=== PATIENT | male | born 1950 | race Caucasian/White ===

== ENCOUNTER 2019-10-25 08:59 | Inpatient (IN) ==
--- NOTE | 2019-10-25 09:11 | PROVIDER DOCUMENTATION ---
HPI-General Adult - General Stated Complaint: weakness Time Seen by Provider: 10/25/19 09:10 Source: patient - History of Present Illness -Gen Adult Nature of Presenting Problems: Pt. is 69 yom that presents with c/o increased weakness. Pt. family is at bedside and they report the patients weakness has gotten worse. They report a previous CVA about 5 years ago. Daughter states the patient normally walks but is having trouble walking today. She also reports that his slurred speech is normal and usually gets better as the day goes on. Location of Pain/Injury: reports: none. denies: head, face, mouth, neck, chest, upper extremity, hand(s), abdomen, back, pelvis, genitalia, lower extremity, feet, upper body, lower body, generalized, other Pain Radiation: reports: no radiation. denies: arm(s), back, buttocks, chest, epigastric, feet, groin, jaw, flank (L), legs (lower), LLQ, LUQ, neck, periumbilical, flank (R), RLQ, RUQ, shoulder(s), scapula, scrotal, sternal notch , suprapubic, legs (upper), urethral, vaginal, other Quality of Pain: reports: none. denies: burning, sharp, tightness Severity: reports: mild. denies: moderate, severe Onset/Duration: reports: abrupt, this morning Timing: reports: still present. denies: improving, intermittent, getting worse Context/Activities at Onset: reports: none. denies: light activity, moderate activity, vigorous activity, recent emotional stress, recent physical stress, recent trauma history, possible bad food, cold exposure, eating, out of country travel, rest, sleep, sexual activity, other Modifying Factors: improves with: nothing Associated Symptoms: reports: weakness. denies: denies symptoms, anxiety, arm pain, back/neck pain, chest pain, constipation, cough, diaphoresis, diarrhea, dizziness, EENT symptoms, fatigue, fever/chills, genitourinary problems, h eadaches, heartburn, joint pain, loss of appetite, malaise, muscle aches, sinus congestion/drainage, nausea, rash, seizure, shortness of breath, sensory/motor loss, pain with inspiration, swelling/mass in abdomen, syncope, vomiting, trouble walking, other Similar Symptoms Previously?: No Recently seen or treated by another doctor?: No Review of Systems - Adult - REVIEW OF SYSTEMS - ADULT Constitutional: reports: no symptoms reported Eyes: reports: no symptoms reported Ears, Nose, Mouth & Throat: reports: no symptoms reported Cardiovascular: reports: no symptoms reported Respiratory: reports: no symptoms reported Gastrointestinal: reports: no symptoms reported Genitourinary: reports: no symptoms reported Musculoskeletal: reports: see HPI, muscle weakness. denies: back pain, joint pain, neck pain Integumentary: reports: no symptoms reported Neurological: reports: see HPI, slurred speech. denies: dizziness/vertigo, headache/migraines, tremors Psychiatric: reports: no symptoms reported Past History - Adult - PAST MEDICAL HISTORY-ADULT Review of Records: reports: Old Records Reviewed, Nursing Assessment Review, Medications Reviewed, Social history reviewed & non-contributory. - IMMUNIZATION STATUS Childhood Immunizations: See Nurse Assessment Flu Vaccine: See Nurse Assessment - FAMILY HISTORY Family History: CVA/TIA - SOCIAL HISTORY Smoking: denies Physical Exam-General - PHYSICAL EXAM-ADULT Initial Vital Signs Reviewed: Yes - CONSTITUTIONAL General Appearance: alert, moderate distress. negative: anxious, obtunded, combative - EYES Eyes: PERRL/EOMI, pink conjunctivae - HEAD, EARS, NOSE, MOUTH & THROAT HENMT: normocephalic/atraumatic, moist mucous membranes - NECK Neck: non-tender, full range of motion, supple, normal inspection - RESPIRATORY Respiratory: lungs clear, normal breath sounds - CARDIOVASCULAR Cardiovascular: normal peripheral pulses, regular rate, rhythm - GASTROINTESTINAL (ABDOMEN) Abdominal Exam: normal bowel sounds, non tender, soft - LYMPHATIC Lymphatic: no adenopathy - MUSCULOSKELETAL Back Exam: normal inspection, no CVA tenderness, no vertebral tenderness Extremity: negative: deformity, erythema, inflammation Peripheral Pulses: radial (R): 2+, radial (L): 2+ - SKIN Integumentary: normal color, normal turgor, warm/dry - NEUROLOGIC Neurologic: motor weakness, sensory deficit. negative: aphasia, facial droop, focal weakness - PSYCHIATRIC Psych/Mental Status: normal mood/affect, normal thought content, normal thought process, oriented x 3. negative: anxious, paranoid, tearful Progress - PLAN OF CARE/RESULTS Progress/Plan/Lab Results: Orders Category Date Time Status Saline Loc NOW Care 10/25/19 09:10 Ordered CHEST-PORTABLE [RAD] Stat Exams 10/25/19 09:11 Ordered CBC WITH ELECTRONIC DIFF [HEME] Stat Lab 10/25/19 09:10 Uncollected CK PROFILE [SP CHEM] Stat Lab 10/25/19 09:10 Uncollected COMPREHENSIVE METABOLIC PANEL [CHEM] Stat Lab 10/25/19 09:10 Uncollected PRO B-NATRIURETIC PEPTIDE Stat Lab 10/25/19 09:10 Ordered TROPONIN T Stat Lab 10/25/19 09:10 Uncollected URINALYSIS W/POSS RFLX CULT [URINALYSIS] Stat Lab 10/25/19 09:10 Uncollected EKG [EKG] Stat Ther 10/25/19 09:10 Ordered Laboratory Tests 10/25/19 10/25/19 10/25/19 09:21 09:21 09:21 WBC 17.15 H RBC 4.22 L Hgb 13.5 L Hct 39.5 L MCV 93.6 MCH 32.0 H MCHC 34.2 RDW Std Deviation 12.9 Plt Count 175 MPV 10.1 Immature Gran % (Auto) 0.3 Neut % (Auto) 68.7 Lymph % (Auto) 14.1 L [place] % (Auto) 16.2 H Eos % (Auto) 0.5 Baso % (Auto) 0.2 Immature Gran # (Auto) 0.05 H Neut # (Auto) 11.79 H Lymph # (Auto) 2.42 [place] # (Auto) 2.78 H Eos # (Auto) 0.08 Baso # (Auto) 0.03 PT INR PTT (Actin FS) Sodium 138 Potassium 3.9 Chloride 101 Carbon Dioxide 23 L Anion Gap 14 BUN 13 Creatinine 1.2 Estimated GFR/1.73 m2 60 BUN/Creatinine Ratio 11 Glucose 95 POC Glucose Calculated Osmolality 276 Calcium 9.0 Magnesium Total Bilirubin 0.41 AST 17 ALT 10 Alkaline Phosphatase 39 Creatine Kinase 142 Troponin T Cjy-O-Wlewmimdcyw Pept 291 H Total Protein 7.0 Albumin 4.0 Globulin 3.0 Albumin/Globulin Ratio 1.3 Plasma Lactate Urine Source Urine Color Urine Turbidity Urine pH Ur Specific [place] Urine Protein Ur Glucose (Stick) Ur Ketones (Stick) Urine Blood Urine Nitrite Urine Bilirubin Urobilinogen Dipstick Urine Leukocytes Urine WBC (Auto) Urine RBC (Auto) U Epithel Cells (Auto) Urine Bacteria (Auto) 10/25/19 10/25/19 10/25/19 09:21 09:21 09:21 WBC RBC Hgb Hct MCV MCH MCHC RDW Std Deviation Plt Count MPV Immature Gran % (Auto) Neut % (Auto) Lymph % (Auto) [place] % (Auto) Eos % (Auto) Baso % (Auto) Immature Gran # (Auto) Neut # (Auto) Lymph # (Auto) [place] # (Auto) Eos # (Auto) Baso # (Auto) PT 14.1 INR 1.07 PTT (Actin FS) 29.3 Sodium Potassium Chloride Carbon Dioxide Anion Gap BUN Creatinine Estimated GFR/1.73 m2 BUN/Creatinine Ratio Glucose POC Glucose Calculated Osmolality Calcium Magnesium 1.8 Total Bilirubin AST ALT Alkaline Phosphatase Creatine Kinase Troponin T < 0.010 Xva-Q-Vtwqpfjvgur Pept Total Protein Albumin Globulin Albumin/Globulin Ratio Plasma Lactate Urine Source Urine Color Urine Turbidity Urine pH Ur Specific [place] Urine Protein Ur Glucose (Stick) Ur Ketones (Stick) Urine Blood Urine Nitrite Urine Bilirubin Urobilinogen Dipstick Urine Leukocytes Urine WBC (Auto) Urine RBC (Auto) U Epithel Cells (Auto) Urine Bacteria (Auto) 10/25/19 10/25/19 10/25/19 09:25 10:00 10:05 WBC RBC Hgb Hct MCV MCH MCHC RDW Std Deviation Plt Count MPV Immature Gran % (Auto) Neut % (Auto) Lymph % (Auto) [place] % (Auto) Eos % (Auto) Baso % (Auto) Immature Gran # (Auto) Neut # (Auto) Lymph # (Auto) [place] # (Auto) Eos # (Auto) Baso # (Auto) PT INR PTT (Actin FS) Sodium Potassium Chloride Carbon Dioxide Anion Gap BUN Creatinine Estimated GFR/1.73 m2 BUN/Creatinine Ratio Glucose POC Glucose 89 Calculated Osmolality Calcium Magnesium Total Bilirubin AST ALT Alkaline Phosphatase Creatine Kinase Troponin T Cyt-A-Cfwipdnfcvd Pept Total Protein Albumin Globulin Albumin/Globulin Ratio Plasma Lactate 1.4 Urine Source CLEAN CATCH Urine Color YELLOW Urine Turbidity CLEAR Urine pH 6.5 Ur Specific [place] 1.018 Urine Protein NEGATIVE Ur Glucose (Stick) NEGATIVE Ur Ketones (Stick) NEGATIVE Urine Blood NEGATIVE Urine Nitrite NEGATIVE Urine Bilirubin NEGATIVE Urobilinogen Dipstick 3 A Urine Leukocytes NEGATIVE Urine WBC (Auto) <10 Urine RBC (Auto) <10 U Epithel Cells (Auto) <10 Urine Bacteria (Auto) NEGATIVE Discussed results and plan of care with patient. Patient agrees with plan and verbalizes understanding. Result Diagrams: 10/25/19 09:21 10/25/19 09:21 - EKG 1 Time of EKG reading by physician:: 09:30 EKG Read and Signed by:: Aj Conner EKG Interpretation (*Must complete 3 of following elements*): Abnormal Rate: 77 Rhythm: NS [place]: normal QRS: RBB [place] Interval: normal ST Wave: normal - XRAY 1 XRAY Study: Chest ([facility] [address], [address], [place] [address] [facility] - [address] [place] [address] Department of Imaging Patient: ROMIE KING Date: 10/25/19MR#: [id number] : 1950DM Status: PRE ERAcct#: [id number] Age/Sex: 69/MRoom/Bed: Loc: ED Ordering Physician: Lyndsey Montano Family Physician: Gurpreet Turcios Reason for Procedure: weakness Signed EXAM: CHEST-PORTABLE 10/25/2019 HISTORY: weakness TECHNIQUE: AP portable at 0923 COMMENT: There is some questionable opacity in the left costophrenic angle region. There are no previous studies available for comparison. IMPRESSION: Questionable atelectasis in the left lower lobe. Electronically signed by Alex Mckeon 10/25/2019 9:33 AM 10/25/19932 Interpreting Physician: Alex Mckeon MD Dictated Date/Time: 10/25/19932 cc: Lyndsey Montano; Gurpreet Turcios) XRAY Interpretation: See note - CT/MRI 1 CT Study: Head ([facility] - [address], [address], [place] [address] [place] [address] Department of Imaging Patient: ROMIE KING Date: 10/25/19#: [id number] : 1950DM Status: PRE ERAcct#: [id number] Age/Sex: 69/MRoom/Bed: Loc: ED Ordering Physician: Lyndsey Montano Family Physician: Gurpreet Turcios Reason for Procedure: weakness with fall Signed CT HEAD W/O CONTRAST - 10/25/2019 INDICATION: weakness with fall COMPARISON: None FINDINGS: There is a large, old infarction at the right parietal lobe. This is in the posterior right middle cerebral artery territory. There is overall mild to moderate diffuse cerebral atrophy. There are probably tiny chronic bilateral subdural hemorrhages. There is severe cerebral white matter chronic microvascular ischemia. There are metallic densities in the left orbit and periorbital tissues. The left globe is scarred. No skull fracture. The sinuses, mastoids, and middle ears are clear. IMPRESSION: Chronic appearing changes. Possible tiny chronic subdural hemorrhages bilaterally. Consider further evaluation with a brain MRI. This report was discussed with David Montano on 10/25/2019 at 9:48 AM and was readback. This exam was performed using automated exposure control, adjustment of mA or kV according to patient size, and/or use of iterative rec onstruction technique Electronically signed by Constantino Echeverria 10/25/2019 9:49 AM 10/25/19 0949 Interpreting Physician: Constantino Echeverria MD Dictated Date/Time: 10/25/1994 cc: Lyndsey Montano; Gurpreet Turcios) CT Results: See note 2 MRI Study: Brain ([facility] - [address] , [address], [place] [address] [place] [address] Department of Imaging Patient: ROMIE KING Date: 10/25/19#: [id number] : 1950DM Status: REG ERAcct#: [id number] Age/Sex: 69/MRoom/Bed: Loc: ED Ordering Physician: Lyndsey Montano Family Physician: Gurpreet uTrcios Reason for Procedure: Increased weakness from normal Signed MRI BRAIN W/WO CONTRAST - 10/25/2019 INDICATION: Increased weakness from normal COMPARISON: Head CT from earlier today FINDINGS: There is moderate patient motion artifact. There is no area of restricted diffusion. There is an area of old encephalomalacia at the right parietal lobe. There is moderate diffuse atrophy. There is extensive periventricular white matter chronic microvascular ischemia. There are probably small subdural effusions bilaterally which are nonspecific. No evidence of intracranial hemorrhage. Midline structures including optic chiasm and pituitary are grossly normal. IMPRESSION: No evidence of intracranial hemorrhage. Advanced chronic changes. Probable small bilateral subdural effusions which appear benign. Electronically signed by Constantino Echeverria 10/25/2019 11:07 AM 10/25/19 1107 Interpreting Physician: Constantino Echeverria MD Dictated Date/Time: 10/25/19 1106 cc: Lyndsey Montano; Gurpreet Turcios) MRI Results: See note - CONSULTS/PCP/HOSPITALIST Notification #1 *Consult/PCP/Hospitalist*: Danni Jaeger Time Discussed: 11:15 Reason/Comments: Admission Consult Disposition: Will see in ED, Admit Departure - Departure Date of Disposition Decision: 10/25/19 Time of Disposition Decision: 11:15 DIAGNOSIS: Weakness Leukocytosis Qualifiers: Leukocytosis type: unspecified Qualified Code(s): D72.829 - Elevated white blood cell count, unspecified Disposition: ADMITTED INPATIENT 09 Certified Medical Emergency: Emergent Condition: Stable Referrals and Follow-Ups: Gurpreet Turcios [Primary Care Provider] - - Critical Care Note This patient required my direct & personal management of CC.: No Attestation - Physician/ JACK Attestation Patient care was provided by Advanced Practice Provider:: Yes Advanced Practice Provider:: Lyndsey Montano Advanced Practice Provider documentation review:: The Mid-level provider documentation, treatment plan and medical decision making was reviewed by the physician who agrees with all treatment and medical decision making by the MLP. The physician spent face to face time with patient:: No Advanced Practice Provider documentation review:: Supervising physician onsite and consulted in the evaluation and care of this patient. The physician did not have a face to face encounter with the patient.
--- NOTE | 2019-10-25 09:32 | EKG Report ---
Test Performed on : 10/25/2019 09:28:06 AM Test Reason : weakness Blood Pressure : / mmHG Vent. Rate : 077 BPM Atrial Rate : 077 BPM P-R Int : 148 ms QRS Dur : 142 ms QT Int : 414 ms P-R-T Axes : 042 -65 071 degrees QTc Int : 468 ms Normal sinus rhythm. Right bundle branch block Left anterior fascicular block Bifascicular block Septal infarct , age undetermined T wave abnormality, consider lateral ischemia Abnormal ECG No previous ECGs available Unconfirmed Result
[2019-10-25 09:34] LABS: BASO# 0.03 X1000 (0.0-0.2); BASO% 0.2 % (0.0-0.8); EOS# 0.08 X1000 (0.0-0.7); EOS% 0.5 % (0.0-10.0); HEMATOCRIT 39.5 % (42.0-52.0); HEMOGLOBIN 13.5 g/dL (14.0-18.0); IMM GRAN# 0.05 X1000 (0.0-0.04); IMM GRAN% 0.3 % (0.0-0.5); LYMPH# 2.42 X1000 (1.2-3.4); LYMPH% 14.1 % (20.5-51.1); MCHC 34.2 g/dL (33-37); MCV 93.6 FL (81-99); MONO# 2.78 X1000 (0.11-0.59); MONO% 16.2 % (1.7-9.3); MPV 10.1 FL (7.4-10.4); NEUT# 11.79 X1000 (1.4-6.5); NEUT% 68.7 % (42.2-75.2); PLT 175 X1000 (130-400); RBC 4.22 XMIL (4.7-6.1); RDW 12.9 % (11.5-14.5); WBC 17.15 X1000 (4.8-10.8)
--- NOTE | 2019-10-25 09:36 | Diag Imaging Result Doc PS360 ---
EXAM: CHEST-PORTABLE 10/25/2019 HISTORY: weakness TECHNIQUE: AP portable at 0923 COMMENT: There is some questionable opacity in the left costophrenic angle region. There are no previous studies available for comparison. IMPRESSION: Questionable atelectasis in the left lower lobe. Electronically signed by Alex Mckeon 10/25/2019 9:33 AM
--- NOTE | 2019-10-25 09:51 | Diag Imaging Result Doc PS360 ---
CT HEAD W/O CONTRAST - 10/25/2019 INDICATION: weakness with fall COMPARISON: None FINDINGS: There is a large, old infarction at the right parietal lobe. This is in the posterior right middle cerebral artery territory. There is overall mild to moderate diffuse cerebral atrophy. There are probably tiny chronic bilateral subdural hemorrhages. There is severe cerebral white matter chronic microvascular ischemia. There are metallic densities in the left orbit and periorbital tissues. The left globe is scarred. No skull fracture. The sinuses, mastoids, and middle ears are clear. IMPRESSION: Chronic appearing changes. Possible tiny chronic subdural hemorrhages bilaterally. Consider further evaluation with a brain MRI. This report was discussed with David Montano on 10/25/2019 at 9:48 AM and was readback. This exam was performed using automated exposure control, adjustment of mA or kV according to patient size, and/or use of iterative reconstruction technique Electronically signed by Constantino Echeverria 10/25/2019 9:49 AM
[2019-10-25 10:16] LABS: URINE SOURCE CLEAN CATCH
[2019-10-25 10:20] LABS: ALB/GLOB RATIO 1.3; CREATININE 1.2 mg/dL (0.7-1.2); POTASSIUM 3.9 mmol/L (3.5-5.1); TOTAL BILIRUBIN 0.41 mg/dL (0.20-1.00)
[2019-10-25 10:22] LABS: BILIRUBIN URINE NEGATIVE (NEGATIVE); BLOOD URINE NEGATIVE (NEGATIVE); COLOR YELLOW; GLUCOSE URINE NEGATIVE (NEGATIVE); KETONE URINE NEGATIVE (NEGATIVE); LEUKOCYTES URINE NEGATIVE (NEGATIVE); NITRITE URINE NEGATIVE (NEGATIVE); PH URINE 6.5; PROTEIN URINE NEGATIVE (NEGATIVE); SP GRAVITY URINE 1.018; TURBIDITY URINE CLEAR (CLEAR); UROBILINOGEN URINE 3 mg/dL (NORMAL)
[2019-10-25 10:23] LABS: INR 1.07; PROTIME 14.1 Seconds (11.0-16.0); PTT 29.3 Seconds (22.3-41.8)
[2019-10-25 10:23] LABS: UR EPITHELIAL CELLS <10 /HPF (<10); URINE BACTERIA NEGATIVE /HPF; URINE RBC <10 /HPF (<10); URINE WBC <10 /HPF (<10)
--- NOTE | 2019-10-25 11:10 | Diag Imaging Result Doc PS360 ---
MRI BRAIN W/WO CONTRAST - 10/25/2019 INDICATION: Increased weakness from normal COMPARISON: Head CT from earlier today FINDINGS: There is moderate patient motion artifact. There is no area of restricted diffusion. There is an area of old encephalomalacia at the right parietal lobe. There is moderate diffuse atrophy. There is extensive periventricular white matter chronic microvascular ischemia. There are probably small subdural effusions bilaterally which are nonspecific. No evidence of intracranial hemorrhage. Midline structures including optic chiasm and pituitary are grossly normal. IMPRESSION: No evidence of intracranial hemorrhage. Advanced chronic changes. Probable small bilateral subdural effusions which appear benign. Electronically signed by Constantino Echeverria 10/25/2019 11:07 AM
[2019-10-25] MEDS ORDERED: ZOFRAN IV PRN (12:44)
[2019-10-25 12:45] LABS: ALLEN TEST YES; BE 0.5 mmoll (-3.0-3.0); BLOOD TYPE ARTERIAL; HCO3-(ACT) 25.2 mmoll (20.0-26.0); METHB 1.1 % (0.0-1.5); O2(CT) 17.8 mL/dL (15.0-23.0); PCO2(98.6) 37 mmHg (35-45); PO2(98.6) 62 mmHg (60-100); SAMPLE BLOOD; SAO2 94.7 % (95.0-100.0); THB 13.8 g/dL (11.5-17.4); pH(98.6) 7.43 (7.35-7.45)
[2019-10-25 12:47] LABS: MODALITY ROOM AIR
--- NOTE | 2019-10-25 14:19 | HISTORY AND PHYSICAL ---
PRIMARY CARE PHYSICIAN: Dr. Turcios. CHIEF COMPLAINT: Fall, found on the floor this morning. He did hit his head on the night table beside his bed, and has a little small laceration to his left ear. No loss of consciousness. HISTORY OF PRESENTING ILLNESS: This is a 69-year-old male who presents to [facility] after he was found on the floor this morning by family. He had lost his balance he states, and hit his head on the bedside table with a small laceration noted to his left ear. He reports increased weakness. He had a stroke about 5 years ago, and has some slurred speech residual from that stroke. Workup showed a CT of the head with chronic appearing changes, possible tiny chronic subdural hemorrhages bilaterally, and recommended an MRI. We did the MRI of the brain, and it showed no evidence of intracranial hemorrhage, advanced chronic changes, and a probable small bilateral subdural effusions which appeared benign. His white blood cell count was elevated at 17.15. Laboratory Data otherwise was unremarkable, but he will be admitted for further evaluation and treatment. PAST MEDICAL HISTORY: CVA 5 years ago, hypertension, and a mild WA. PAST SURGICAL HISTORY: Left leg surgery in the 70s for unknown reason. FAMILY HISTORY: Reviewed and noncontributory. SOCIAL HISTORY: Currently lives with family. Smokes 1 to 2 packs of cigarettes a day, and has done so for 40+ years. Denies any alcohol or illicit drug use. ALLERGIES: No known allergies. HOME MEDICATIONS: We do not have a current list at this time, but we will have nursing to update and confirm home medications. LABORATORY DATA: White blood cell count of 17.15, hemoglobin 13.5, hematocrit 39.5, and platelets 175,000. PT and INR of 14.1 and 1.07. Sodium of 138, potassium 3.9, chloride 101, CO2 23, BUN of 13, creatinine 1.2, glucose 95, and magnesium 1.8. Cardiac enzyme was negative. Plasma lactate of 1.4. Urinalysis was negative. CT of the head showed chronic appearing changes, possible tiny chronic subdural hemorrhage bilaterally. Consider further evaluation with brain MRI. We obtained a brain MRI that showed no evidence of intracranial hemorrhage, advanced chronic changes, and a probable small bilateral subdural effusion which appeared benign. Chest x-ray showed a questionable atelectasis in the left lower lobe. EKG normal sinus rhythm at 77. REVIEW OF SYSTEMS: He denied any fever, chills, blurred vision, or dizziness. He has had increased weakness. Denied any chest pain, coughing, or shortness of breath. Denied any abdominal pain, constipation, diarrhea, burning or hurting with urination. PHYSICAL EXAMINATION: Pulse of 96, respirations 18, blood pressure 147/96, and saturating 100% on room air. GENERAL: This is a 69-year-old male who is lying in the bed. Answers questions appropriately. Difficult to understand at times from his residual slurred speech from a previous stroke. HEENT: The patient is noted to have a small laceration to his left ear from where he hit the bedside table by his bed. A Band-Aid in place. Normal nose and throat examination. Oropharynx and nares are clear. EYES: Pupils are equal, round, reactive to light and accommodation. Extraocular movements are intact. NECK: Normal inspection. Normal range of motion. LUNGS: Clear to auscultation bilaterally with equal lung expansion. Chest wall movement. HEART: Regular rate and rhythm. No murmurs, rubs, or gallops. ABDOMEN: Soft, nontender, nondistended. Bowel sounds are present x4 quadrants. MUSCULOSKELETAL: Normal inspection. Moves extremities well. NEUROLOGICAL: The cranial nerves 2-12 appear grossly intact. ASSESSMENT: 1. Status post fall. 2. Leukocytosis, no clear etiology of infection. 3. Hypertension. 4. Tobacco abuse. PLAN: He will be admitted to the medical unit, and placed on telemetry. Healthy heart diet. Give him a nicotine patch. We will have 21 mg transdermally daily. We will have physical therapy to evaluate and treat. We need to update and confirm home medications, and then we will restart those as appropriate. We will recheck a CBC BMP in the morning. Further orders after seen by attending. Dictated by NEGRO Avery for Guy Jaeger MD cc: NEGRO Avery MD Dr. Beach
[2019-10-25] MEDS: NICODERM PATCH TD SCH (15:01)
[2019-10-25] MEDS: TYLENOL PO PRN (15:10)
[2019-10-25] MEDS ORDERED: FLU VACCINE IM ONE (15:38)
[2019-10-25] MEDS: ROCEPHIN 1 GM in NS 50 ML IV SCH (16:38)
[2019-10-25] MEDS: ZITHROMAX 500 MG/NS 500 MG/250 ML IVPB IV SCH (17:21)
--- NOTE | 2019-10-25 20:01 | PROGRESS NOTE ---
DATE: 10/25/2019 SUBJECTIVE: This is a patient who was found on the floor. He has a significant history of CVA five years ago, with hemiparesis and slurred speech. He was found on the floor. Unclear if he passed out or fell. In any case, he was calling out though, so he was awake when this happened. He was placed in observation for treatment, rule out stroke. He did have a white count of 17,000, without a clear source. He does not really describe any cough. His urine was clear, but there was a questionable left basilar infiltrate, so he may have a little bit of pneumonia. OBJECTIVE: I really could not get very much out of him. I did not appreciate rales. ASSESSMENT/PLAN: In any case, we will treat empirically for pneumonia and see how he does. There is no evidence of acute stroke based on neuroimaging that has been accomplished, so we will continue to follow. I think he is at his baseline essentially. This is a [id number]-il-rcoe encounter note with Danni Valdivia. cc: Guy Jaeger MD
[2019-10-25] MEDS: RISPERDAL PO SCH (20:57)
[2019-10-25] MEDS: COGENTIN PO SCH (20:57)
[2019-10-25] MEDS: EXELON PO SCH (20:58)
[2019-10-25] MEDS: LOPRESSOR PO SCH (20:58)
[2019-10-25] MEDS: NORVASC PO SCH (20:58)
[2019-10-25] MEDS: DEPAKOTE PO SCH (20:58)
[2019-10-25] MEDS: DUONEB (A & A) INH SCH (21:26)
[2019-10-26] MEDS: LOVENOX SUBQ SCH (05:55)
[2019-10-26 07:45] LABS: BASO# 0.03 X1000 (0.0-0.2); BASO% 0.2 % (0.0-0.8); EOS% 0.7 % (0.0-10.0); HEMATOCRIT 39.5 % (42.0-52.0); HEMOGLOBIN 13.4 g/dL (14.0-18.0); IMM GRAN# 0.05 X1000 (0.0-0.04); IMM GRAN% 0.3 % (0.0-0.5); LYMPH% 23.4 % (20.5-51.1); MCH 31.9 PG (27-31); MCHC 33.9 g/dL (33-37); MONO# 1.96 X1000 (0.11-0.59); MONO% 13.5 % (1.7-9.3); MPV 10.6 FL (7.4-10.4); NEUT% 61.9 % (42.2-75.2); PLT 169 X1000 (130-400); WBC 14.54 X1000 (4.8-10.8)
[2019-10-26 07:50] LABS: AGAP 13; BUN 12 mg/dL (8-22); CALCIUM 8.7 mg/dL (8.8-10.2); CHLORIDE 102 mmol/L (98-107); COSMO 279; CREATININE 0.9 mg/dL (0.7-1.2); ESTIMATED GFR > 60; GLUCOSE 90 mg/dL (70-104); POTASSIUM 3.6 mmol/L (3.5-5.1); SODIUM 140 mmol/L (136-145); TCO2 25 mmol/L (25-35)
[2019-10-26] MEDS: ASPIRIN PO SCH (08:41)
[2019-10-26] MEDS: RISPERDAL PO SCH ×2 (08:42→22:48)
[2019-10-26] MEDS: LOPRESSOR PO SCH ×2 (08:42→22:48)
[2019-10-26] MEDS: EXELON PO SCH ×2 (08:42→22:48)
[2019-10-26] MEDS: NORVASC PO SCH ×2 (08:42→22:48)
[2019-10-26] MEDS: NICODERM PATCH TD SCH (08:43)
[2019-10-26] MEDS: DUONEB (A & A) INH SCH ×3 (09:30→21:44)
[2019-10-26] MEDS ORDERED: VANCOMYCIN IV PER PHARMACY MISC SCH (09:30)
[2019-10-26] MEDS ORDERED: VANCOMYCIN 2 GM in NS 500 ML IV SCH (11:00)
[2019-10-26] MEDS: COGENTIN PO SCH ×2 (12:40→22:48)
--- NOTE | 2019-10-26 14:06 | Diag Imaging Result Doc PS360 ---
EXAM: CHEST-2 VIEWS 10/26/2019 HISTORY: hypoxia TECHNIQUE: PA and lateral chest COMMENT: There is a calcified granuloma in the left lower lobe. Compared to 10/15/2019 there has been no appreciable change. IMPRESSION: Stable chest. Electronically signed by Alex Mckeon 10/26/2019 2:04 PM
[2019-10-26] MEDS: ZITHROMAX 500 MG/NS 500 MG/250 ML IVPB IV SCH (16:17)
[2019-10-26] MEDS: ROCEPHIN 1 GM in NS 50 ML IV SCH (16:46)
--- NOTE | 2019-10-26 19:49 | PROGRESS NOTE ---
DATE: 10/26/2019 SUBJECTIVE: No major complaints. I cannot see that we are really getting much cough or anything. OBJECTIVE: Vital signs: Blood pressure is pretty stable, 120/90, heart rate of 89, respiratory rate of 22, temperature 98.4 degrees. Cardiovascular: Regular rate and rhythm. Pulmonary: Bilateral breath sounds, clear to auscultation. GI: Soft, nontender, nondistended. Bowel sounds are positive. LABORATORY DATA: White count 14, hemoglobin and hematocrit 13 and 39, platelets 169,000. Basic was normal. Chest x-ray is stable. PROBLEM LIST: 1. Left lower lobe pneumonia. He is on empiric antibiotics. We will continue to follow. 2. History of cerebrovascular accident with hemiparesis, but he ambulates on his own without difficulty, so we will continue with physical therapy and strength training and see how he does. 3. Hypertension. Continue his regular medications. DISPOSITION: If stable, anticipate discharge hopefully tomorrow pending clinical status. cc: Guy Jaeger MD
[2019-10-26] MEDS: DEPAKOTE PO SCH (22:49)
[2019-10-27] MEDS: LOVENOX SUBQ SCH (06:44)
[2019-10-27 07:03] LABS: BASO# 0.04 X1000 (0.0-0.2); BASO% 0.4 % (0.0-0.8); EOS# 0.22 X1000 (0.0-0.7); EOS% 1.9 % (0.0-10.0); HEMATOCRIT 38.3 % (42.0-52.0); HEMOGLOBIN 13.3 g/dL (14.0-18.0); IMM GRAN# 0.05 X1000 (0.0-0.04); IMM GRAN% 0.4 % (0.0-0.5); LYMPH# 2.86 X1000 (1.2-3.4); LYMPH% 25.2 % (20.5-51.1); MCH 32.3 PG (27-31); MCHC 34.7 g/dL (33-37); MONO% 16.7 % (1.7-9.3); MPV 10.8 FL (7.4-10.4); NEUT# 6.29 X1000 (1.4-6.5); NEUT% 55.4 % (42.2-75.2); PLT 182 X1000 (130-400); RBC 4.12 XMIL (4.7-6.1); RDW 12.7 % (11.5-14.5); WBC 11.36 X1000 (4.8-10.8)
[2019-10-27 07:21] LABS: AGAP 13; BUN 14 mg/dL (8-22); CALCIUM 8.7 mg/dL (8.8-10.2); CHLORIDE 101 mmol/L (98-107); COSMO 278; CREATININE 0.9 mg/dL (0.7-1.2); ESTIMATED GFR > 60; GLUCOSE 102 mg/dL (70-104); POTASSIUM 3.9 mmol/L (3.5-5.1); SODIUM 139 mmol/L (136-145); TCO2 25 mmol/L (25-35)
[2019-10-27] MEDS: DUONEB (A & A) INH SCH ×4 (10:42→23:35)
[2019-10-27] MEDS: NICODERM PATCH TD SCH (11:04)
[2019-10-27] MEDS: RISPERDAL PO SCH ×2 (11:04→20:58)
[2019-10-27] MEDS: EXELON PO SCH ×2 (11:05→20:58)
[2019-10-27] MEDS: LOPRESSOR PO SCH ×2 (11:05→20:58)
[2019-10-27] MEDS: COGENTIN PO SCH ×2 (11:05→20:58)
[2019-10-27] MEDS: ASPIRIN PO SCH (11:05)
[2019-10-27] MEDS: NORVASC PO SCH ×2 (11:05→20:58)
[2019-10-27] MEDS: TYLENOL PO PRN (13:37)
[2019-10-27] MEDS: ROCEPHIN 1 GM in NS 50 ML IV SCH (15:42)
[2019-10-27] MEDS: ZITHROMAX 500 MG/NS 500 MG/250 ML IVPB IV SCH (17:11)
[2019-10-27] MEDS ORDERED: TEARISOL OPH SOLUTION BOTH EYES PRN (18:16)
[2019-10-27] MEDS: DEPAKOTE PO SCH (20:58)
[2019-10-27] MEDS: MIRALAX PO SCH (20:59)
[2019-10-27] MEDS: LACTULOSE PO SCH (20:59)
--- NOTE | 2019-10-27 23:53 | PROGRESS NOTE ---
DATE: 10/27/2019 SUBJECTIVE: The patient has no major complaints. OBJECTIVE: Blood pressure 130/62, heart rate 62, respiratory rate of 20, temperature 98.6 degrees, 97% on room air.Cardiovascular: Regular rate and rhythm. Pulmonary: Bilateral breath sounds, clear to auscultation. GI: Soft, nontender, nondistended. Bowel sounds were positive. LABORATORY DATA: White count is 11, hemoglobin and hematocrit 13 and 38, platelets 182,000. Basic was normal. ASSESSMENT AND PLAN: 1. Left lower lobe pneumonia. He is on antibiotics. White count continues to improve. We will switch him to p.o. azithromycin for another 3 days. He is on intravenous Rocephin. We may be able to convert that, too. 2. History of cerebrovascular accident with chronic debilitation. Physical Therapy feels there is fall risk and issues there, so recommending inpatient rehabilitation. 3. Hypertension. We will continue regular medications. 4. Disposition: We will look at rehabilitation options when Social Work is available. cc: Guy Jaeger MD
[2019-10-28] MEDS: LOVENOX SUBQ SCH (06:32)
[2019-10-28] MEDS: MIRALAX PO SCH (10:08)
[2019-10-28] MEDS: NICODERM PATCH TD SCH (10:09)
[2019-10-28] MEDS: NORVASC PO SCH ×2 (10:10→22:00)
[2019-10-28] MEDS: RISPERDAL PO SCH ×2 (10:10→22:00)
[2019-10-28] MEDS: COGENTIN PO SCH ×2 (10:10→22:00)
[2019-10-28] MEDS: ZITHROMAX PO SCH (10:10)
[2019-10-28] MEDS: EXELON PO SCH ×2 (10:10→22:00)
[2019-10-28] MEDS: LACTULOSE PO SCH ×2 (10:11→22:00)
[2019-10-28] MEDS: LOPRESSOR PO SCH ×2 (10:11→22:00)
[2019-10-28] MEDS: ASPIRIN PO SCH (10:11)
[2019-10-28] MEDS: DUONEB (A & A) INH SCH ×4 (10:46→23:34)
[2019-10-28] MEDS: ROCEPHIN 1 GM in NS 50 ML IV SCH (16:07)
[2019-10-28] MEDS: TYLENOL PO PRN (17:35)
--- NOTE | 2019-10-28 17:58 | PROGRESS NOTE ---
DATE: 10/28/2019 SUBJECTIVE: Patient has no major complaints. OBJECTIVE: Blood pressure 126/57, heart rate of 72, respiratory rate 18, temperature 97.8 degrees, O2 saturation 100% on room air.Cardiovascular: Regular rate and rhythm. Pulmonary: Bilateral breath sounds clear to auscultation. GI: Soft, nontender, nondistended. Bowel sounds are positive. LABORATORY DATA: White count 11, hemoglobin and hematocrit 13 and 38 platelets 182,000. Basic was normal. PROBLEM LIST: 1. Left lower lobe pneumonia. He is on antibiotics of Rocephin and azithromycin. We are waiting on white count to stabilize and I think we can switch him to oral. 2. History of cerebrovascular accident with vascular dementia. He is at his baseline, very pleasant however. 3. Significant debilitation with pneumonia and stroke, so we are looking at inpatient rehab when available. 4. Hypertension. Continue regular medications. DISPOSITION: Pending rehab evaluation. cc: Guy Jaeger MD
[2019-10-28] MEDS: DEPAKOTE PO SCH (22:00)
[2019-10-29] MEDS: LOVENOX SUBQ SCH (06:32)
[2019-10-29 06:43] LABS: BASO# 0.06 X1000 (0.0-0.2); BASO% 0.7 % (0.0-0.8); EOS# 0.32 X1000 (0.0-0.7); EOS% 3.6 % (0.0-10.0); HEMOGLOBIN 12.9 g/dL (14.0-18.0); IMM GRAN# 0.06 X1000 (0.0-0.04); IMM GRAN% 0.7 % (0.0-0.5); LYMPH# 3.12 X1000 (1.2-3.4); LYMPH% 35.5 % (20.5-51.1); MCH 31.5 PG (27-31); MCHC 33.1 g/dL (33-37); MCV 95.1 FL (81-99); MONO# 1.26 X1000 (0.11-0.59); MONO% 14.3 % (1.7-9.3); MPV 10.5 FL (7.4-10.4); NEUT# 3.98 X1000 (1.4-6.5); NEUT% 45.2 % (42.2-75.2); PLT 177 X1000 (130-400); RDW 12.8 % (11.5-14.5)
[2019-10-29 07:25] LABS: AGAP 13; BUN 14 mg/dL (8-22); CALCIUM 8.8 mg/dL (8.8-10.2); CHLORIDE 103 mmol/L (98-107); COSMO 281; CREATININE 0.9 mg/dL (0.7-1.2); ESTIMATED GFR > 60; GLUCOSE 93 mg/dL (70-104); SODIUM 141 mmol/L (136-145); TCO2 25 mmol/L (25-35)
[2019-10-29] MEDS: EXELON PO SCH ×2 (09:00→21:06)
[2019-10-29] MEDS: ASPIRIN PO SCH (09:00)
[2019-10-29] MEDS: LOPRESSOR PO SCH ×2 (09:00→21:06)
[2019-10-29] MEDS: RISPERDAL PO SCH ×2 (09:00→21:05)
[2019-10-29] MEDS: NICODERM PATCH TD SCH (09:00)
[2019-10-29] MEDS: LACTULOSE PO SCH ×2 (09:00→21:06)
[2019-10-29] MEDS: ZITHROMAX PO SCH (09:00)
[2019-10-29] MEDS: MIRALAX PO SCH (09:00)
[2019-10-29] MEDS: COGENTIN PO SCH ×2 (09:00→21:06)
[2019-10-29] MEDS: NORVASC PO SCH ×2 (09:00→21:06)
[2019-10-29] MEDS: DUONEB (A & A) INH SCH ×3 (10:26→22:51)
--- NOTE | 2019-10-29 10:48 | PROGRESS NOTE ---
DATE: 10/29/2019 SUBJECTIVE: The patient has no complaints. Family members are at bedside and they feel that he is doing better. OBJECTIVE: Vital Signs: Blood pressure is 124/65 with a pulse of 75, respirations 16, temperature is 98 degrees oral with room air saturations 97 to 99 percent. Cardiovascular: Regular rate and rhythm. S1 and S2 appreciated. He has no lower extremity edema. Peripheral pulses palpable x4 extremities. Pulmonary: Breath sounds are clear bilateral. Chest rises falls symmetric with respiration. Gastrointestinal: Abdomen is soft, nontender, nondistended with bowel sounds in all 4 quadrants. Neurologic: He is at his baseline per family members. LABORATORY DATA: WBC is 8.8 with hemoglobin 12.9, hematocrit 39 and platelets of 177,000. Sodium is 141, potassium 4, BUN 14, creatinine 0.9 with a glucose of 93. ASSESSMENT AND PLAN: 1. Left lower lobe pneumonia. He continues on antibiotics with his last dose of azithromycin due 10/30/2019 at 9 a.m. He continues with Rocephin. Today is day 5. 2. History of cerebrovascular accident with vascular dementia. He is at his baseline per family members who are at the bedside. 3. Significant debilitation with pneumonia and stroke. Rehab is pending. 4. Hypertension. We will continue with his current regimen. 5. Disposition: Rehab is pending. 6. We will repeat a CBC and BMP in the morning. Plan was discussed with Dr. Ma. Dictated by NEGRO Humphreys for Avinash Odonnell MD cc: NEGRO Humphreys MD
[2019-10-29] MEDS: ROCEPHIN 1 GM in NS 50 ML IV SCH (17:52)
[2019-10-29] MEDS: DEPAKOTE PO SCH (21:04)
[2019-10-30] MEDS: LOVENOX SUBQ SCH (06:32)
[2019-10-30] MEDS: EXELON PO SCH (08:42)
[2019-10-30] MEDS: ZITHROMAX PO SCH (08:42)
[2019-10-30] MEDS: ASPIRIN PO SCH (08:42)
[2019-10-30] MEDS: NICODERM PATCH TD SCH (08:42)
[2019-10-30] MEDS: NORVASC PO SCH (08:42)
[2019-10-30] MEDS: LACTULOSE PO SCH (08:43)
[2019-10-30] MEDS: LOPRESSOR PO SCH (08:43)
[2019-10-30] MEDS: RISPERDAL PO SCH (08:43)
[2019-10-30] MEDS: MIRALAX PO SCH (08:43)
[2019-10-30] MEDS: COGENTIN PO SCH (08:52)
--- NOTE | 2019-10-30 09:13 | Diag Imaging Result Doc PS360 ---
CHEST-PORTABLE - 10/30/2019 INDICATION: Pneumonia COMPARISON: 10/26/2019 FINDINGS: The lungs are normally expanded and clear. Heart size and mediastinal contours are normal. No pneumothorax or pleural effusion. Stable small granuloma in the left lung base. IMPRESSION: Negative exam. Electronically signed by Constantino Echeverria 10/30/2019 9:11 AM
--- NOTE | 2019-10-30 10:35 | DISCHARGE SUMMARY ---
ADMISSION DATE: 10/27/2019 DISCHARGE DATE: DISCHARGE DIAGNOSES: 1. Left lower lobe pneumonia. 2. History of cerebrovascular accident with vascular dementia and left-sided weakness. 3. Generalized weakness. 4. Hypertension. 5. Apparent history of myocardial infarction. PROCEDURES PERFORMED: Head CT scan dated 10/25/2019, impression: Possible tiny chronic subdural hemorrhage bilaterally. Brain MRI dated 10/25/2019, impression: No evidence of intracranial hemorrhage, advanced chronic changes, probably small bilateral subdural effusions which appear benign. Chest x-ray dated 10/26/2019, impression: Stable. Chest x-ray dated 10/26/2019, impression: Negative exam. HOSPITAL COURSE: A 69-year-old male with a past medical history of CVA, left-sided weakness, hypertension, probably [place], was found on the floor the morning of admission by his family on 10/25/2019. Apparently, he has lost his balance and hit his head on the bedside table, with a small laceration noted in his left ear. He reported increasing weakness. He has some slurred speech also residuals from that stroke. CT scan showed the possibility of tiny chronic subdural hemorrhage bilaterally, but the MRI did not show any acute abnormality, just advanced chronic changes, and probably small bilateral subdural effusions which appeared benign. X-ray showed the possibility of a pneumonia, and since this patient has a leukocytosis with 70,000 white blood cell counts, we started treatment with antibiotics. This patient also has been confused on and off, but it looks like he is recovering properly. Probably, it is likely due to the pneumonia. His white blood cell count normalized. All the lab work seems to be stable. Since this patient is severely weak, we will discharge him to a rehab center. At the moment of discharge, this patient was tolerating p.o., and it looks like he is close to his baseline, but he does have generalized weakness. PHYSICAL EXAMINATION: Vital Signs: Temperature 97.7 degrees, pulse 67, respiratory rate 16, blood pressure 152/73, oxygen saturation 93 on room air. HEENT: Head normocephalic. PERRLA. Neck: Supple. No JVD. Central trachea. Chest: Some crepitus at the bases, mostly on the left side. Abdomen: Soft, protuberant, nontender, nondistended. No hepatosplenomegaly. Extremities: No edema, no clubbing, no cyanosis. Neurological: The patient is awake, alert. He is oriented x3 today. He does have left-sided weakness and some slurred speech. LABORATORY DATA: WBC 8.8, hemoglobin 12.9, hematocrit 39, platelets 177,000. Sodium 141, potassium 4, chloride 103, bicarbonate 25, BUN 14, creatinine 0.9, glucose 93, calcium 8.8. This lab work has been done yesterday. DISCHARGE MEDICATIONS: Acetaminophen 650 mg p.o. every 6 hours as needed for fever, DuoNeb 3 mL inhaler every 6 hours as needed, amlodipine 5 mg p.o. b.i.d., aspirin 325 mg p.o. daily, benztropine 1 mg p.o. b.i.d., cefdinir 300 mg p.o. b.i.d. to complete 10 days of treatment, 5 more days, Depakote 1250 mg p.o. at bedtime, lactulose 30 mL p.o. b.i.d., metoprolol 50 mg p.o. b.i.d., MiraLAX 17 grams p.o. daily, ophthalmic solution in both eyes as needed, risperidone 4 mg p.o. b.i.d., rivastigmine 3 mg p.o. b.i.d. This patient will be discharged to a rehab center. Today, this patient is completely awake, alert, and he is oriented. He does have chronic left-sided weakness, but now generalized weakness as well. We will complete the treatment for pneumonia. cc: Avinash Odonnell MD MTDD
[2019-10-30] MEDS: DUONEB (A & A) INH SCH (10:58)
[2019-10-30 12:00] VITALS: BP 136/80
== END 2019-10-30 16:22 | DRG 194 ==
LOC: SUPCPDRO → ED 08:59 → INTOOBSV 12:23 → EDIPHOLD 12:23 → 4N 14:52 → SUATTDRO 10-27 10:42 → 4N 10-27 15:03
PROVIDERS: ATTEND Internal Medicine